=== PATIENT | female | born 1980 | race Caucasian/White ===

== ENCOUNTER 2020-07-27 19:43 | Observation (INO) ==
[2020-07-27] MEDS ORDERED: 0.9 % Sodium Chloride 1,000 ML IVC ONE (20:13)
[2020-07-27] MEDS ORDERED: Acetaminophen 325 MG TABLET PO ONE (20:14)
[2020-07-27] MEDS ORDERED: Isovue-370 500 ML BOTTLE IVP ONE (20:14)
[2020-07-27 20:33] LABS: Basophils # 0.1 K/mcL (0.0-0.2); Basophils % 0.4 %; Eosinophils # 0.1 K/mcL (0.0-0.6); Eosinophils % 0.5 %; Hematocrit 34.1 % (35.3-44.9); Hemoglobin 11.1 g/dL (11.5-15.4); Immature Granulocytes % 0.3 % (0-4); Lymphocytes # 2.3 K/mcL (0.6-4.6); Lymphocytes % 14.1 %; Mean Corpuscular HGB Conc 32.6 g/dL (31.6-35.5); Mean Corpuscular Hemoglobin 27.5 pg (28.0-33.3); Mean Corpuscular Volume 84.6 fL (83.0-100.0); Mean Platelet Volume 9.5 fL (9.4-12.4); Monocytes # 0.9 K/mcL (0.0-1.3); Monocytes % 5.2 %; Neutrophils # 12.9 K/mcL (1.6-8.9); Platelet Count 315 K/mcL (140-400); Red Blood Count 4.03 M/mcL (3.82-4.97); Red Cell Distribution Width 15.2 % (11.5-14.5); Segmented Neutrophils % 79.5 %; White Blood Count 16.3 K/mcL (4.3-11.1)
[2020-07-27 20:35] LABS: INR 1.2; Prothrombin Time 13.3 Seconds (9.4-12.1)
[2020-07-27 20:52] LABS: Alanine Aminotransferase 17 Units/L (7-52); Albumin 4.1 g/dL (3.5-5.7); Albumin/Globulin Ratio 1.2 (1.1-2.2); Alkaline Phosphatase 123 Units/L (34-104); Amylase 42 Units/L (29-103); Aspartate Amino Transferase 13 Units/L (13-39); BUN/Creatinine Ratio 21 (6-26); Bilirubin,Direct 0.2 mg/dL (0.0-0.2); Bilirubin,Indirect 0.3 mg/dL (0.0-1.0); Bilirubin,Total 0.5 mg/dL (0.3-1.0); Blood Urea Nitrogen 13 mg/dL (6-20); Calcium 9.2 mg/dL (8.6-10.3); Carbon Dioxide 25 mEq/L (23-29); Chloride 100 mEq/L (98-107); Globulin 3.5 g/dL (2.4-3.5); Glucose 114 mg/dL (70-105); Lipase 11 Units/L (11-82); Osmolality,Calculated 279 (280-300); Potassium 3.6 mEq/L (3.5-5.1); Sodium 134 mEq/L (136-145); Total Protein 7.6 g/dL (6.4-8.9); Troponin I < 0.03 ng/mL (< 0.04); eGFR For African Americans > 60 (> 60); eGFR For Non-African Americans > 60 (> 60)
[2020-07-27 20:53] LABS: Bacteria,Urine Few per hpf (None-Few); Bilirubin,Urine Negative (Negative); Blood,Urine Large (Negative); Clarity,Urine Turbid (Clear); Color,Urine Dark-Yellow (Yellow); Glucose,Urine (UA) Normal (Normal); Ketones,Urine Negative (Negative); Leukocyte Esterase,Urine Large (Negative); Mucus,Urine Few per lpf (None-Few); Nitrite,Urine Negative (Negative); Protein,Urine 30 mg/dL (Neg-Trace); Specific Gravity,Urine 1.022 (1.010-1.025); Squamous Epithelial Cell,Urine Few per hpf (None-Few); Urobilinogen,Urine Normal (Normal); WBC,Urine 50-100 per hpf (0-3)
[2020-07-27 22:16] LABS: Adenovirus Not Detected (Not Detect); Coronavirus 229E Not Detected (Not Detect); Coronavirus HKU1 Not Detected (Not Detect); Coronavirus NL63 Not Detected (Not Detect); Coronavirus OC43 Not Detected (Not Detect)
[2020-07-27 22:17] LABS: Bordetella Pertussis Not Detected (Not Detect); Chlamydophila pneumoniae Not Detected (Not Detect); Human Metapneumovirus Not Detected (Not Detect); Human Rhinovirus/Enterovirus Not Detected (Not Detect); Influenza A Subtype 2009 H1 Not Detected (Not Detect); Influenza B Not Detected (Not Detect); Mycoplasma pneumoniae Not Detected (Not Detect); Parainfluenza Virus 1 Not Detected (Not Detect); Parainfluenza Virus 2 Not Detected (Not Detect); Parainfluenza Virus 3 Not Detected (Not Detect); Parainfluenza Virus 4 Not Detected (Not Detect); Respiratory Syncytial Virus Not Detected (Not Detect); SARS-CoV-2 DETECTED (Not Detect)
[2020-07-27] MEDS ORDERED: cefTRIAXone 1,000 MG in 0.9 % Sodium Chloride Mini Bag 100 ML IVPB ONE (23:31)
[2020-07-28] MEDS ORDERED: Naloxone 0.4 MG/ML INJ IVP PRN (01:50)
[2020-07-28] MEDS ORDERED: Ibuprofen 600 MG TABLET PO PRN (01:50)
[2020-07-28] MEDS ORDERED: Benzonatate 100 MG CAPSULE PO PRN (01:54)
[2020-07-28] MEDS: *HR* HYDROcodone/Acet 5/325 mg TABLET PO PRN ×2 (02:40→08:05)
[2020-07-28] MEDS: Ondansetron 4 MG/2 ML VIAL IVP PRN ×3 (02:42→21:44)
[2020-07-28] MEDS: Ringers Solution, Lactated 1,000 ML IVC SCH (02:46)
[2020-07-28] MEDS: Piperacillin/Tazobactam 3.375 GM in 0.9 % Sodium Chloride Mini Bag 100 ML IVPB SCH ×3 (02:47→17:37)
[2020-07-28] MEDS ORDERED: Menthol 9.1 MG LOZENGE PO PRN (07:41)
[2020-07-28] MEDS: Fluticasone Propionate Nasal 50 MCG/SPRAY BOTTLE NS SCH (08:11)
[2020-07-28] MEDS: hydroCHLOROthiazide 25 MG TABLET PO SCH (09:46)
[2020-07-28] MEDS: Loratadine 10 MG TABLET PO SCH (09:48)
[2020-07-28] MEDS: Acetaminophen IV 1,000 MG/100 ML BAG IVPB SCH ×2 (12:08→17:36)
[2020-07-28] MEDS ORDERED: *HR* FentaNYL (PF) 100 MCG/2 ML VIAL IVP ONE (14:48)
[2020-07-28] MEDS ORDERED: *HR* Midazolam HCl 2 MG/2 ML VIAL IVP ONE (14:48)
[2020-07-28] MEDS: *HR* HYDROmorphone (PF) 1 MG/ML SYRINGE IVP PRN (18:26)
[2020-07-28] MEDS ORDERED: Metoclopramide 10 MG/2 ML VIAL IVP ONE (23:42)
[2020-07-29] MEDS: Acetaminophen IV 1,000 MG/100 ML BAG IVPB SCH ×3 (00:04→14:43)
[2020-07-29] MEDS: Ringers Solution, Lactated 1,000 ML IVC SCH (00:04)
[2020-07-29] MEDS: Piperacillin/Tazobactam 3.375 GM in 0.9 % Sodium Chloride Mini Bag 100 ML IVPB SCH ×3 (04:02→17:21)
[2020-07-29] MEDS: hydroCHLOROthiazide 25 MG TABLET PO SCH (08:04)
[2020-07-29] MEDS: Fluticasone Propionate Nasal 50 MCG/SPRAY BOTTLE NS SCH (08:19)
[2020-07-29 08:59] LABS: Hematocrit 31.1 % (35.3-44.9); Hemoglobin 9.8 g/dL (11.5-15.4); Mean Corpuscular HGB Conc 31.5 g/dL (31.6-35.5); Mean Corpuscular Hemoglobin 26.7 pg (28.0-33.3); Mean Corpuscular Volume 84.7 fL (83.0-100.0); Mean Platelet Volume 9.5 fL (9.4-12.4); Platelet Count 296 K/mcL (140-400); Red Blood Count 3.67 M/mcL (3.82-4.97); Red Cell Distribution Width 14.9 % (11.5-14.5); White Blood Count 11.3 K/mcL (4.3-11.1)
[2020-07-29] MEDS: Loratadine 10 MG TABLET PO SCH (09:07)
[2020-07-29] MEDS: Ondansetron 4 MG/2 ML VIAL IVP PRN ×2 (12:09→19:37)
[2020-07-29] MEDS: *HR* HYDROmorphone (PF) 1 MG/ML SYRINGE IVP PRN ×2 (12:22→19:38)
[2020-07-29 15:53] VITALS: BP 115/74
== END 2020-07-29 22:30 | disposition home or self-care (01) ==
LOC: EMEROOARM 19:43 → 1NENUOBS 19:43
PROVIDERS: ADMIT Obstetrics & Gynecology; ATTEND Obstetrics & Gynecology
PROC: IRDRAIN (2020-07-28 12:00)